=== PATIENT | male | born 1990 | race African-American/Black ===

== ENCOUNTER 2016-10-26 09:41 | Emergency (ER) | payer OTHER ==
[~2016-10-26] VITALS: Ht 170.2 cm; Wt 94.2 kg
[~2016-10-26 09:41] MED LIST: FLEXERIL5 MG PO; NAPROSYN500 MG PO; NOHOMEMEDS
[2016-10-26] MEDS ORDERED: ZOFRAN ODT4 MG PO (10:23)
[2016-10-26] MEDS ORDERED: IMODIUM A-D2 M2 PO (10:23)
[2016-10-26 11:03] LABS: HEMATOCRIT 45.8 % (38.0-50.0); MCHC 34.3 G/DL (30.0-36.0); MCV 87.4 FL (86-99); PLATELET COUNT 173 K/uL (156-360); RBC DIS.WIDTH-CV 11.4 % (11.8-14.6); RBC DIS.WIDTH-SD 36.6 % (39-53); RED BLOOD COUNT 5.24 M/uL (4.00-5.50); WHITE BLOOD COUNT 7.9 K/uL (4.1-10.2)
[2016-10-26 11:12] LABS: ADD MIUA? NO; BILIRUBIN NEGATIVE; BLOOD NEGATIVE; COLOR YELLOW ((YELLOW)); GLUCOSE (STRIP) NEGATIVE; KETONES NEGATIVE; LEUKOCYTES NEGATIVE; NITRITE NEGATIVE; PROTEIN (STRIP) NEGATIVE; SPECIFIC GRAVITY 1.014 (1.000-1.030); UROBILINOGEN 0.2 MG/DL (0.2-1.0)
[2016-10-26 11:14] LABS: CHLORIDE 105 mEq/L (99-109); POTASSIUM 3.8 mEq/L (3.7-5.4); SODIUM 138 mEq/L (136-147)
[2016-10-26 11:16] LABS: GLUCOSE 90 mg/dL (70-99)
[2016-10-26 11:17] LABS: ANION GAP 10 MEQ/L (2-14)
[2016-10-26 11:18] LABS: TOTAL BILIRUBIN 1.2 mg/dL (0.0-1.0)
[2016-10-26 11:19] LABS: ALKALINE PHOSPHATASE 78 IU/L (3-129)
[2016-10-26 11:20] LABS: GFR ESTIMATE (CALCULATED) > 59 mL/min/
[2016-10-26 11:21] LABS: UREA NITROGEN (BUN) 10 mg/dL (9-23)
[2016-10-26 11:23] LABS: LIPASE 20 U/L (1.0-51.0)
[2016-10-26 11:41] VITALS: BP 119/73
== END 2016-10-26 11:43 | disposition home or self-care (01) ==
LOC: EME 09:41 → EXP 09:41
PROVIDERS: Nurse Practitioner Family
DX: R11.2 Nausea with vomiting, unspecified (principal); R19.7 Diarrhea, unspecified; F17.200 Nicotine dependence, unspecified, uncomplicated; R51 Headache
CPT/HCPCS: 80053; 81003; 83690; 85027; 99281; 99283